=== PATIENT | female | born 1985 | race Caucasian/White ===

== ENCOUNTER 2018-05-07 03:52 | Emergency (ER) | payer OTHER ==
--- NOTE | 2018-05-07 04:08 | PDOC ---
History of Present Illness - General Stated Complaint: VOMITING Time Seen by Provider: 05/07/18 04:07 History Source: Patient Exam Limitations: No Limitations - History of Present Illness Initial Comments: 32 yo morbidly obese F w a pmh of gastric sleeve surgery in Feb presents to the ER after 3 days of vomiting and diarrhea. The patient states she was last well on Friday night when she went to bed. She states that Friday morning she woke up and experienced her first episode of vomiting. The vomitus was NBNB and recurred 3 times on Friday. She also experienced a few episodes of watery diarrhea on Friday. She continued to experience multiple episodes of vomiting on friday and Friday but no longer had any diarrhea. She came into the ER tonight to be evaluated because the vomiting would not stop and the patient was concerned. She admits to mild lower abdominal pain associated with the vomiting. The pain does not radiate and is only rated as 4/10 in intensity. She denies recent fevers, chest pain, SOB, difficulty breathing, headache, blurry vision, neck pain, back pain, dysuria, frequency, urgency, constipation, weakness, numbness, tingling or vertigo. LMP: 3.5 weeks ago PCP: Dr. Jamari Nathan PSH: Gastric Sleeve 03/01 Social Hx: Drinks recreationally, denies smoking or other substance usage Allergies: NKA, NKDA Past History - Past Medical History Allergies/Adverse Reactions: Allergies Allergy/AdvReac Type Severity Reaction Status Date / Time No Known Allergies Allergy Verified 05/07/18 04:19 Home Medications: Ambulatory Orders Nitrofurantoin Monohyd/M-Cryst [Macrobid -] 100 mg PO BID #10 capsule 05/07/18 Ondansetron HCl [Zofran] 4 mg PO PRN #7 tablet 05/07/18 - Suicide/Smoking/Psychosocial Hx Smoking Status: No Smoking History: Never smoked Have you smoked in the past 12 months: No Number of Cigarettes Smoked Daily: 0 'Breaking Loose' booklet given: 07/11/15 Hx Alcohol Use: Yes (OCCAS) Drug/Substance Use Hx: (MARIJUANA) Substance Use Type: None Review of Systems - Review of Systems Able to Perform ROS?: Yes Comments:: CONSTITUTIONAL: Present: Fatigue Absent: fever, no chills EYES: Absent: visual changes ENT: Absent: ear pain, no sore throat CARDIOVASCULAR: Absent: chest pain, no palpitations RESPIRATORY: Absent: cough, no SOB GI: Present: Abdominal pain, nausea, vomiting, diarrhea Absent: no constipation GENITOURINARY: Absent: dysuria, no frequency, no hematuria MUSKULOSKELETAL: Absent: back pain, no arthralgia, no myalgia SKIN: Absent: rash NEURO: Absent: headache *Physical Exam - Physical Exam Comments: GENERAL: Well-appearing, well-nourished. No apparent distress. HEENT: Normocephalic, atraumatic. PERRL, EOM intact. CARDIOVASCULAR: Normal S1, S2. Regular rate and rhythm. PULMONARY: No evidence of respiratory distress. Lungs clear to auscultation bilaterally. No wheezing, rales or rhonchi. ABDOMEN: Hyperactive bowel sounds. Soft, non-distended, non-tender. EXTREMITIES: Normal ROM in all four extremities. No gross deformities. SKIN: Warm, dry. No rash NEUROLOGICAL: No focal neurological deficits. ED Treatment Course - LABORATORY CBC & Chemistry Diagram: 05/07/18 04:22 05/07/18 04:22 Medical Decision Making - Medical Decision Making 32 yo morbidly obese F w a pmh of gastric sleeve surgery in Feb presents to the ER after 3 days of vomiting and diarrhea. The patient states she was last well on Friday night when she went to bed. She states that Friday morning she woke up and experienced her first episode of vomiting. The vomitus was NBNB and recurred 3 times on Friday. She also experienced a few episodes of watery diarrhea on Friday. She continued to experience multiple episodes of vomiting on friday and Friday but no longer had any diarrhea. She came into the ER tonight to be evaluated because the vomiting would not stop and the patient was concerned. She admits to mild lower abdominal pain associated with the vomiting. The pain does not radiate and is only rated as 4/10 in intensity. VS: Hypertensive, otherwise WNL DDx IBNLT: Gastroenteritis vs food poisoning, pancreatitis, - ectopic vs hyperemesis gravidarum, molar , Ovarian pathology. Plan: Labs, Urine, hcg, EKG, IV hydration, pepcid, Antiemetics, re-assess. CBC, CMP, lipase unremarkable - HCG negative - UA shows positive nitrite, 7 wbc, and moderate bacteria. Will treat with Macrobid for 5 days. Will DC with PCP fu and supportive care instruction. *DC/Admit/Observation/Transfer Diagnosis at time of Disposition: Nausea and vomiting, Diarrhea, Abdominal pain, UTI (urinary tract infection) - Discharge Dispostion Disposition: HOME Condition at time of disposition: Improved Decision to Admit order: No - Prescriptions Prescriptions: Nitrofurantoin Monohyd/M-Cryst [Macrobid -] 100 mg PO BID #10 capsule Ondansetron HCl [Zofran] 4 mg PO PRN #7 tablet - Referrals Schedule a call back: call back for urinary culture Referrals: Jamari Guevara [Primary Care Provider] - - Patient Instructions Printed Discharge Instructions: DI for Diarrhea and Traveler's Diarrhea -- Adult, DI for Nausea -- Adult, DI for Vomiting -- Adult Additional Instructions: You came into the ER with nausea, vomiting, abdominal pain and diarrhea. We believe you might have experienced food poisoning from a virus. We gave you some IV hydration and anti nausea medication and you felt better. We looked at your Urine and saw that you have a urinary tract infection. We are sending an antibiotic - macrobid - to your pharmacy for you to take twice a day for the next 5 days. We are also sending some anti nausea medication to your pharmacy - zofran - please make sure to go and pick it up. Please make sure to schedule a follow up appointment with your primary care doctor in the next 3 to 5 days to make sure you are getting better and being taken care of. Come back to the ER if you get a fever, can't stop vomiting, have abdominal pain or any other new or worsening concerns. Thank you for coming to the [facility] ER. We hope you feel better soon. Print Language: SWEDISH - Post Discharge Activity
[2018-05-07] MEDS ORDERED: FAMOTIDINE 20 MG/50 ML IVPB 20 MG/50 ML MG IVPB ONE (04:12)
[2018-05-07] MEDS ORDERED: SODIUM CHLORIDE 1,000 ML IV STA (04:12)
[2018-05-07] MEDS ORDERED: ONDANSETRON 4 MG/2 ML VIAL IVPUSH ONE (04:13)
--- NOTE | 2018-05-07 04:15 | PDOC ---
Attending Attestation - Resident Resident Name: Xander Santiago - ED Attending Attestation I have performed the following: I have examined & evaluated the patient, The case was reviewed & discussed with the resident, I agree w/resident's findings & plan - HPI HPI: 05/07/18 05:51 32-year-old female with vomiting diarrhea abdominal cramping. - Physicial Exam PE: 05/07/18 05:52 Agree with resident's exam - Medical Decision Making 05/07/18 05:52 32-year-old female with vomiting diarrhea and abdominal cramping On reevaluation after 2 L of IV fluid patient now asymptomatic stating she feels much better and is ready to go home Abdomen remains nontender
[2018-05-07 04:41] LABS: BASO % 0.2 % (0-2.0); EOS % 1.8 % (0-4.5); HEMATOCRIT 38.1 % (32.4-45.2); HEMOGLOBIN 13.3 GM/dL (10.7-15.3); LYMPH % 29.9 % (8-40); MCH 30.6 pg (25.7-33.7); MCHC 34.9 g/dl (32.0-36.0); MEAN CELL VOLUME 87.5 fl (80-96); MEAN PLT VOLUME 9.6 fl (7.5-11.1); NEUT % 62.1 % (42.8-82.8); PLATELET COUNT 212 K/MM3 (134-434); RBC 4.36 M/mm3 (3.60-5.2); RDW 12.8 % (11.6-15.6); WHITE BLOOD COUNT 8.3 K/mm3 (4.0-10.0)
[2018-05-07 04:43] VITALS: BP 176/98; PULSE 84; TEMP 98.3; BMI 36.3
[2018-05-07 04:44] LABS: URINE APPEARANCE SLCLOUDY; URINE BILIRUBIN NEGATIVE (<2.0 mg/dL); URINE COLOR YELLOW; URINE GLUCOSE (UA) NEGATIVE (NEGATIVE); URINE KETONE NEGATIVE (NEGATIVE); URINE LEUK ESTERASE NEGATIVE (NEGATIVE); URINE NITRITE POSITIVE (NEGATIVE); URINE PROTEIN NEGATIVE (NEGATIVE); URINE UROBILINOGEN NEGATIVE mg/dL (0.2-1.0)
[2018-05-07 04:50] LABS: EPI CELLS RARE /HPF (FEW); URINE BACTERIA MODERATE /hpf (NONE SEEN); URINE MUCUS RARE
[2018-05-07] MEDS ORDERED: ONDANSETRON 4 MG/2 ML VIAL ONE (04:53)
[2018-05-07 05:06] LABS: ALBUMIN 3.5 g/dl (3.4-5.0); ALK PHOS 70 U/L (45-117); ANION GAP 7 MMOL/L (8-16); BILIRUBIN,TOTAL 0.2 mg/dL (0.2-1); BLOOD UREA NITROGEN 14 mg/dL (7-18); CHLORIDE 108 mmol/L (98-107); CO2 24 mmol/L (21-32); CREATININE 0.9 mg/dL (0.55-1.3); GLUCOSE,RANDOM 86 mg/dL (74-106); LIPASE 327 U/L (73-393); POTASSIUM 4.4 mmol/L (3.5-5.1); SGOT/AST 17 U/L (15-37); SGPT/ALT 29 U/L (13-61); SODIUM 139 mmol/L (136-145); TOT PROT 7.3 g/dl (6.4-8.2)
[2018-05-07] MEDS ORDERED: SODIUM CHLORIDE 0.9% 500 ML INFUS.BAG IV ONE (05:24)
--- NOTE | 2018-05-07 11:53 | EKG ---
Test Reason : Blood Pressure : / mmHG Vent. Rate : 073 BPM Atrial Rate : 073 BPM P-R Int : 148 ms QRS Dur : 084 ms QT Int : 392 ms P-R-T Axes : 069 068 054 degrees QTc Int : 431 ms POOR DATA QUALITY, INTERPRETATION MAY BE ADVERSELY AFFECTED NORMAL SINUS RHYTHM NORMAL ECG NO PREVIOUS ECGS AVAILABLE Confirmed by DADA MYERS MD ([id number]) on 05/07/2018 11:53:16 AM Referred By: Confirmed By:DADA MYERS MD
== END 2018-05-07 06:40 | disposition home or self-care (01) ==
LOC: JER 03:52
PROC: 3E0337Z Introduction of Electrolytic and Water Balance Substance into Peripheral Vein, Percutaneous Approach (ICD-10-PCS; principal; 2018-05-07)
PROC: 3E033GC Introduction of Other Therapeutic Substance into Peripheral Vein, Percutaneous Approach (ICD-10-PCS; 2018-05-07)
DX: N39.0 Urinary tract infection, site not specified (principal); R11.2 Nausea with vomiting, unspecified
CPT/HCPCS: 36415; 80053; 81003; 81015; 83690; 84703; 85025; 93005; 93010; 99282-25; J7030

== ENCOUNTER 2021-04-28 10:20 | Emergency (ER) | payer OTHER ==
[2021-04-28 10:26] VITALS: TEMP 98.6; BMI 43.2
[2021-04-28] MEDS ORDERED: ONDANSETRON 4 MG/2 ML VIAL IVPUSH ONE ×2 (10:28→10:33)
[2021-04-28] MEDS ORDERED: SODIUM CHLORIDE 0.9% 1000 ML INFUS.BAG IV ONE (10:28)
[2021-04-28] MEDS ORDERED: ONDANSETRON 4 MG/2 ML VIAL ONE ×2 (10:32→10:43)
[2021-04-28] MEDS ORDERED: ACETAMINOPHEN 1000 MG/100 ML BAG IVPB ONE (10:35)
[2021-04-28 11:08] LABS: BILIRUBIN,TOTAL 1.1 mg/dl (0.2-1); CALCIUM 9.5 mg/dl (8.5-10); CREATININE 1.1 mg/dl (0.55-1.3); TOT PROT 7.1 g/dl (6.4-8.2)
[2021-04-28] MEDS ORDERED: ACETAMINOPHEN INJECTION 100 ML IVPB ONE (11:13)
[2021-04-28 11:39] LABS: BASO % 0.1 % (0-2.0); EOS % 0.5 % (0-4.5); HEMATOCRIT 37.9 % (32.4-45.2); HEMOGLOBIN 12.6 GM/dL (10.7-15.3); MCH 27.9 pg (25.7-33.7); MCHC 33.1 g/dl (32.0-36.0); MEAN CELL VOLUME 84.1 fl (80-96); MEAN PLT VOLUME 9.5 fl (7.5-11.1); MONO % 4.4 % (3.8-10.2); PLATELET COUNT 225 10^3/uL (134-434); RBC 4.51 M/mm3 (3.60-5.2); RDW 13.1 % (11.6-15.6); WHITE BLOOD COUNT 12.3 K/mm3 (4.0-10.0)
[2021-04-28 12:05] VITALS: BP 112/68; PULSE 85
== END 2021-04-28 14:32 | disposition home or self-care (01) ==
LOC: FER 10:20
PROC: 3E033NZ Introduction of Analgesics, Hypnotics, Sedatives into Peripheral Vein, Percutaneous Approach (ICD-10-PCS; principal; 2021-04-28)
PROC: 3E033GC Introduction of Other Therapeutic Substance into Peripheral Vein, Percutaneous Approach (ICD-10-PCS; 2021-04-28)
PROC: 3E033GC Introduction of Other Therapeutic Substance into Peripheral Vein, Percutaneous Approach (ICD-10-PCS; 2021-04-28)
DX: R10.9 Unspecified abdominal pain (principal); R11.10 Vomiting, unspecified
CPT/HCPCS: 36415; 74177-TC; 80053; 84484; 84703; 85025; 93005; 99285-25; Q9967

== ENCOUNTER 2022-07-31 01:53 | Emergency (ER) | payer BC, OTHER ==
[2022-07-31 02:00] VITALS: PULSE 88; RESP 16; TEMP 98; BMI 37.8
[2022-07-31] MEDS ORDERED: TETRACAINE 0.5% OPHTH SOLN 2 ML BOTTLE ONE (02:02)
[2022-07-31] MEDS ORDERED: FLUORESCEIN NA 1 EA STRIP ONE (02:02)
[2022-07-31 02:23] VITALS: BP 160/108
[2022-07-31] MEDS ORDERED: POLYMYXIN B SULFATE/TMP 10 ML OPHTHALMIC SOLUTION OD SCH (06:00)
== END 2022-07-31 02:25 | disposition home or self-care (01) ==
LOC: FER 01:53
DX: H57.11 Ocular pain, right eye (principal); H10.31 Unspecified acute conjunctivitis, right eye; H02.841 Edema of right upper eyelid
CPT/HCPCS: 99283-25